=== PATIENT | female | born 1965 | race Caucasian/White ===

== ENCOUNTER 2016-07-15 05:34 | Day surgery (SDC) | payer BC ==
[2016-07-11 17:31] LABS: HEMATOCRIT 41.3 % (36.0-48.0); HEMOGLOBIN 14.6 g/dL (12.0-16.0)
[2016-07-11 17:40] LABS: PARTIAL THROMBO TIME 27.8 SEC (22.5-37.2)
--- NOTE | ~2016-07-15 | OP ---
Record Of Operation [facility] [address] [place]. [address] NAME: GONZALES COLE : 63 STATUS : [facility] UNIT#: [id number] AGE: 50 ADM/REG DATE : 07/15/16 MR#: [id number] REPORT SERV DATE: 07/15/16 DICTATED BY: PAM ALVARENGA DATE: 07/15/16 REPORT STATUS : Draft TRANSCRIBED BY: MODKinsey DATE: 07/15/16 DATE OF PROCEDURE: 07/15/2016 PREOPERATIVE DIAGNOSES: 1. Right septal deviation. 2. Bilateral inferior turbinate hypertrophy. 3. Right maxillary sinusitis. 4. Right ethmoid sinusitis. 5. Right sphenoid sinusitis. PROCEDURE PERFORMED: 1. Septoplasty. 2. Bilateral inferior turbinate reduction. 3. Right maxillary antrostomy. 4. Right total ethmoidectomy. 5. Right sphenoidotomy with tissue removal. 6. Right ethmoid PROPEL steroid drug-eluting stent placement. SURGEON: Pam Alvarenga M.D. CLEANING MAID: None. ANESTHESIA: General. COMPLICATIONS: None. CONDITION: Stable to recovery. INDICATIONS: This is a 50-year-old female with a recurrent sinusitis, right-sided. PROCEDURE IN DETAIL: The patient was identified in preoperative holding, taken back to the operating room, placed supine on the operating room table. General anesthesia was established. She was prepped and draped in a standard fashion for the operation. A time- out was called. The patient and procedure were confirmed. The CT images were reviewed. The patient was vasoconstricted with 1% lidocaine with 1:100,000 epinephrine injected into the bilateral septum, bilateral greater palatine foramen, and the right middle turbinate. A total of 9 mL was used. Afrin-soaked pledgets were used additionally in the inferior and middle meatus. Initially, a septoplasty was performed to provide access to the right ethmoid cavity as this was obstructed by septal deviation. Eliezer-transfixion incision was made. Mucoperichondrial envelopes were elevated and a cartilaginous window was removed using a swivel knife creating access to the vomer where a Jason-Srivastava was used along with a Murray scissor to remove of vomer bone deviating into the right middle turbinate. This adjustment made created space for excellent visualization. The small spur was removed from the anterior crest as well with a 4 mm osteotome. This cartilage was morcellized and replaced into the Record Of Operation [facility] [id number] [place]. [address] NAME: GONZALES COLE : 63 STATUS : [facility] PAT#: [id number] AGE: 50 ADM/REG DATE : 07/15/16 MR#: [id number] REPORT SERV DATE: 07/15/16 DICTATED BY: PAM ALVARENGA DATE: 07/15/16 REPORT STATUS : Draft TRANSCRIBED BY: MARISABEL DATE: 07/15/16 mucoperichondrial envelope. A quilting stitch was placed and then using 4-0 chromic and then the eliezer-transfixion incision was closed using three separate interrupted chromic 4-0 sutures. Attention was then turned to the right sinus where maxillary antrostomy was performed using a combination of a 0-degree and 30-degree endoscopes throughout the case. A [place] elevator was used to medialize the middle turbinate. Deborah elevator was used to perform uncinectomy along with a backbiting instrument. This provided access to the right maxillary sinus. The anterior ethmoidectomy was then performed using a combination of Blakesley-Misty forceps, the J curette and [place] elevator and the shaver microdebrider. We took this all the way back along the roof of the skull base and through ground lamella to the posterior ethmoid. There was significant polypoid disease, which was removed with Blakesley-Misty forceps and shaver microdebrider. The bony partitions were removed with Blakesley-Misty forceps. The medial lamina papyracea of the orbital wall was identified and avoided. The skull base was avoided. We penetrated the posterior ethmoid air cells into the sphenoid sinus, large polypoid and thick yellow-green peanut butter type consistency drainage was irrigated and flushed from the sphenoid sinus. The sphenoid balloon was used to dilate the ostia wider. Inspection of the ostia revealed complete clearance of the debris. We then throughout the case Afrin-soaked pledgets and adrenaline-soaked pledgets were used for hemostasis. At this point, a PROPEL implant was placed in the ethmoid cavity medializing the middle turbinate. A Surgiflo was placed for hemostasis. Cameron splints were then placed for the septum and secured with a 2-0 silk suture through the columella. The patient was awakened and taken to recovery in stable condition. There were no complications. PH/MODL Pam Alvarenga M.D. / [id number] CC: Pam Alvarenga M.D.
[~2016-07-15 05:34] MED LIST: PRAVACHOL40 MG PO; PRILOSEC40 MG PO; SYNTHROID200 MCG PO; ZOL100 PO
== END 2016-07-15 12:39 | disposition home or self-care (01) ==
LOC: SDC 05:34
PROVIDERS: Specialist
PROC: 09DU4ZZ Extraction of Right Ethmoid Sinus, Percutaneous Endoscopic Approach (ICD-10-PCS; 2016-07-15)
PROC: 09CW4ZZ Extirpation of Matter from Right Sphenoid Sinus, Percutaneous Endoscopic Approach (ICD-10-PCS; 2016-07-15)
PROC: 09SM4ZZ Reposition Nasal Septum, Percutaneous Endoscopic Approach (ICD-10-PCS; principal; 2016-07-15 07:15)
PROC: 09Q Ear, Nose, Sinus, Repair (ICD-10-PCS; 2016-07-15 07:15)
PROC: 099Q4ZZ Drainage of Right Maxillary Sinus, Percutaneous Endoscopic Approach (ICD-10-PCS; 2016-07-15 07:15)
DX: J34.2 Deviated nasal septum (principal); J34.3 Hypertrophy of nasal turbinates; J32.0 Chronic maxillary sinusitis; J32.2 Chronic ethmoidal sinusitis; J32.3 Chronic sphenoidal sinusitis; B44.89 Other forms of aspergillosis; J44.9 Chronic obstructive pulmonary disease, unspecified; K21.9 Gastro-esophageal reflux disease without esophagitis; F17.210 Nicotine dependence, cigarettes, uncomplicated; Z88.5 Allergy status to narcotic agent; Z79.899 Other long term (current) drug therapy; E78.00 Pure hypercholesterolemia, unspecified; K58.0 Irritable bowel syndrome with diarrhea; Z87.442 Personal history of urinary calculi; Z98.890 Other specified postprocedural states; F41.0 Panic disorder [episodic paroxysmal anxiety]; F41.9 Anxiety disorder, unspecified; E89.0 Postprocedural hypothyroidism
CPT/HCPCS: 0406T; 30520; 30802; 31255; 31256; 31288; 85014; 85018; 85730; 87015; 87070; 87075; 87102; 87107; 87116; 88305; 88312; 93005; A9270-GY; C1726; C1887; C2625; J0690; J1170; J2250; J2370; J2405; J2710; J3010